=== PATIENT | female | born 1960 | race Hispanic/Latino ===

== ENCOUNTER → 2024-10-13 | Outpatient (CLI) | payer BC ==
--- NOTE | 2024-10-13 23:26 | HMCSR ---
APPROVED REPORT EXAM: Two-dimensional and M-mode echocardiogram with Doppler and color Doppler. INDICATION ICD: R06.02 Shortness of breath, Palpitations 2D Dimensions RVDd3.0 cmLVEF(%)34.0 (>50%)LVEF(%, simp.)48 % IVSd0.9 (0.7-1.1cm)FS(%)16 %LA ESV INDEX (BP)24.72 mL/m2 LVDd5.0 (3.8-5.6cm)LA (2D)3.9 (1.6-4.0cm) PWd1.1 (0.7-1.1cm)Ao Root(2D)3.2 (2.0-3.7cm) IVSs0.8 cmLVOT diam2.2 (1.8-2.4cm) LVDs4.2 (2.5-4.0cm) PWs1.1 cm M-Mode Dimensions EPSS0.9 cm LA (MM)3.9 (1.6-4.0cm) Ao Root(MM)2.9 (2.0-3.7cm) Aortic Valve AoV Vmax1.3 m/Chrystal Peak GR6.7 mmHgLVOT Vmax0.9 m/s AoV VTI0.2 mAo Mean GR4.1 mmHgLVOT VTI0.18 m XOCHILT (VMAX)2.9 cm2AVA (VTI) 2.9 cm2 Mitral Valve MV E Vmax71.3 cm/sDECEL Nozx922 ms MV A Vmax82.3 cm/sP 1/2 T49 ms E/A ratio0.9MVA (PHT)4.5 cm2 TDI E/E' Bljqfs38.9E/E' Lateral8.9 Medial E' Peak V6.00 cm/sLateral E' Peak V8.00 cm/s Pulmonary Valve PV Vmax1.0 m/s Tricuspid Valve TR Vmax2.0 m/sRAP (EST) 8 jbGlEDTQ50.4 mmHg TR Peak GR16.4 mmHg Left Ventricle The left ventricle is normal size. Normal wall motion There is normal left ventricular wall thickness . LVEF is 55-60% Normal diastolic function Right Ventricle The right ventricle is normal size. The right ventricular systolic function is normal. Atria The left atrium size is normal. The right atrium size is normal. Aortic Valve The aortic valve is normal in structure. No aortic regurgitation is present. There is no aortic valvu lar stenosis. Mitral Valve The mitral valve is normal in structure. There is no mitral valve regurgitation noted. There is no mi tral valve stenosis. Tricuspid Valve The tricuspid valve is normal in structure. There is trace of tricuspid valve regurgitation noted. Pulmonic Valve The pulmonary valve is normal in structure. There is no pulmonic valvular regurgitation. Great Vessels The aortic root is normal in size. IVC is not well visualized. Pericardium There is no pericardial effusion. Other Information Quality : Good Conclusion LVEF is 55-60% There is normal left ventricular wall thickness. The left ventricle is normal size. Normal wall motion There is no pericardial effusion. Normal pulmonary hypertension Study quality was adequate
== END | disposition home or self-care (01) ==
LOC: RAH 12:47
PROVIDERS: ATTEND Internal Medicine
DX: R06.02 Shortness of breath (principal); R00.2 Palpitations
CPT/HCPCS: 93306